=== PATIENT | male | born 1985 | race Caucasian/White ===

== ENCOUNTER → 2017-04-22 | Outpatient (CLI) | payer BC ==
[~2017-04-22] MED LIST: CEPHALEXIN500 M1 PO
--- NOTE | ~2017-04-22 | CR91 ---
[facility] A Service of [facility] RADIOLOGY TEXT RESULTS PATIENT: TEOFILO GAY LOCATION: [facility] : [id number] UNIT #: [id number] AGE: [address]: Libby Rizvi MD SEX: M ORDER DR: [id number] [facility] [address] [place], [place] [address] [id number] O MR#: [id number] Acc #: [id number] NAME: TEOFILO GAY : 1985 SEX: M STUDY DATE/TIME: 04/22/2017 10:43 UNIT: [facility] ROOM: STUDY DESCRIPTION: CR Elbow 2 View Rt Attending Physician: Libby Rizvi M.D. Referring Physician: Libby Rizvi M.D. Ordering Physician: Libby Rizvi M.D. Primary Care Physician: Libby Rizvi M.D. MEDICAL IMAGING REPORT This report is preliminary unless electronic signature is present EXAM Right elbow 04/22/2017 HISTORY 32-year-old male pain lateral aspect right elbow past 3 months. FINDINGS AP and lateral views of the right elbow demonstrate preservation of the joint with no indication of joint effusion. Cortex is intact. Mineralization is preserved. I see no periosteal response. Soft tissues appear unremarkable. IMPRESSION Negative right elbow. Dictated by... Gianfranco Sullivan M.D. THIS IS AN ELECTRONICALLY VERIFIED REPORT Gianfranco Sullivan M.D. at 04/22/2017 3:39 PM Angelica TD: 04/22/2017 14:53 JOB #: [id number] MEDICAL IMAGING REPORT Page 1 of 1 COPY
== END | disposition home or self-care (01) ==
LOC: CRAD 10:21
DX: M77.10 Lateral epicondylitis, unspecified elbow (principal)
CPT/HCPCS: 73070